=== PATIENT | female | born 1975 | race Caucasian/White ===

== ENCOUNTER 2017-03-03 08:56 | Emergency (ER) | payer BC ==
[2017-03-03 09:00] VITALS: TEMP 98.2
--- NOTE | 2017-03-03 09:12 | EDPHY ---
H & P Stated Complaint: Stung by bee L ankle on Friday;has not taken benadryl Time Seen by Provider: 03/03/17 09:12 - Personal History LMP (Females 10-55): Now Current Tetanus Diphtheria and Acellular Pertussis (TDAP): Yes - Medical/Surgical History Hx Asthma: No Hx Chronic Respiratory Disease: No Hx Diabetes: No Hx Cardiac Disease: No Hx Renal Disease: No Hx Cirrhosis: No Hx Alcoholism: No Hx HIV/AIDS: No Hx Splenectomy or Spleen Trauma: No Other PMH: HYPOTHYROID HX ANXIETY - Social History Smoking Status: Never smoked Constitutional: Initial Vital Signs Temperature (C) 36.8 C 03/03/17 08:58 Heart Rate 78 03/03/17 08:58 Respiratory Rate 18 03/03/17 08:58 Blood Pressure 134/86 H 03/03/17 08:58 O2 Sat (%) 100 03/03/17 08:58 O2 Delivery Mode Room Air Allergies/Adverse Reactions: Penicillins Allergy (Mild, Verified 03/03/17 08:57) Rash Home Medications: Medication Instructions Recorded Levothyroxine 50 mcg PO DAILY 06/30/13 predniSONE 40 mg PO DAILY #4 tab 03/03/17 Medical Decision Making ED Course/Re-evaluation: CHIEF COMPLAINT: Left ankle swelling, bee sting HISTORY OF PRESENT ILLNESS: The patient is a 41 y/o female arriving with her complaining of localized left ankle pain and swelling secondary to a bee sting 3 days ago. She was stung on her medial left ankle and directly afterwards developed redness and swelling. Her symptoms have persisted and she complains of associated itching at the site. She denies systemic symptoms or dramatic increase in swelling. She called her PCP's office this morning to discuss her symptoms and was referred to the ED for evaluation of anaphylaxis. She denies any shortness of breath, facial or throat swelling, syncope, or other symptoms. She is normally healthy. REVIEW OF SYSTEMS: A 10 point review of systems was performed and is negative with the exception of the elements mentioned in the history of present illness. PHYSICAL EXAM: HR, BP, O2 Sat, RR. Temp noted General Appearance: Alert, well hydrated, appropriate, and non-toxic appearing. Head: Atraumatic without scalp tenderness or obvious injury Eyes: Pupils equal, round, reactive to light and accommodation, EOMI, no trauma , no injection. Nose: Atraumatic, no rhinorrhea, clear. Throat: Mucus membranes moist. Neck: Supple Respiratory: No retractions, no distress, no wheezes, and no accessory muscle use. Lungs are clear to auscultation bilaterally. Cardiovascular: Regular rate and rhythm, no murmurs, rubs, or gallops. Left dorsalis pedis and posterior tibial pulses intact. Good capillary refill all extremities. Musculoskeletal: Normal active ROM of all extremities, atraumatic. 4" diameter area of swelling, erythema, and tenderness along left medial ankle. No lymphangitis, fluctuance, or evidence of infection. Neurological: Alert, appropriate, and interactive. Nonfocal neuro exam. Skin: No rashes, good turgor, no nodules on palpation. Past medical history: Denies Past surgical history: Denies Family history: noncontributory Social history: at bedside. Lives in [place]. Self-employed. DIFFERENTIAL DIAGNOSIS: The differential diagnosis included but was not limited to bee sting, localized inflammation, cellulitis, angioedema, anaphylaxis, anaphylactoid reaction, urticarial reaction, and other infectious causes for skin rash. MEDICAL DECISION MAKING: This is a healthy 41 y/o female who presents with a 3-day history of localized left ankle tenderness and swelling secondary to a bee sting. She has no other symptoms. No respiratory distress or evidence of systemic illness or allergic reaction. She will be discharged in good condition with a script for prednisone and recommendation to follow up with her PCP for persisting symptoms. She agrees with treatment plan. Return precautions given. Departure - Departure Disposition: Home, Routine, Self-Care Clinical Impression: Bee sting Condition: Good Instructions: Insect Bite or Sting (ED) Additional Instructions: 1. Take prednisone as prescribed. 2. Follow up your primary care provider for unimproved symptoms over the next few days. 3. Return to the ED for severe pain, dramatic increase in redness or swelling, fever, or other worsening or condition. Referrals: Maris Hartmann MD [Primary Care Provider] - As per Instructions Prescriptions: predniSONE 40 mg PO DAILY #4 tab Report Scribed for: Fei Muse Report Scribed by: Katina Christian Date of Report: 03/03/17 Time of Report: 09:30
[2017-03-03 09:53] VITALS: BP 112/82; PULSE 72; RESP 16; O2SAT 98
== END 2017-03-03 09:53 | disposition home or self-care (01) ==
DX: T63.441A Toxic effect of venom of bees, accidental (unintentional), initial encounter (principal)

== ENCOUNTER → 2017-03-18 | Outpatient (CLI) | payer BC | LOC: FIMAGING 09:37 | PROVIDERS: ATTEND Family Medicine | DX: Z12.31 Encounter for screening mammogram for malignant neoplasm of breast (principal) | CPT/HCPCS: G0202 ==

== ENCOUNTER → 2018-07-31 | Outpatient (CLI) | payer BC | LOC: FIMAGING 08:56 | PROVIDERS: ATTEND Nurse Practitioner Family | DX: Z12.31 Encounter for screening mammogram for malignant neoplasm of breast (principal) ==